=== PATIENT | male | born 1950 | race Two or more races ===

== ENCOUNTER 2018-11-30 09:20 | Emergency (ER) | payer OTHER ==
[~2018-11-30] VITALS: Ht 165.1 cm; Wt 74.8 kg
[2018-11-30] MEDS ORDERED: METOPROLOL ER-1 EACH (09:54)
[2018-11-30] MEDS ORDERED: ATORVASTATIN CA10 MG (09:55)
[2018-11-30] MEDS ORDERED: ASPIR 8181 MG (09:56)
== END 2018-11-30 12:09 | disposition home or self-care (01) ==
LOC: ER 09:20
DX: K40.90 Unilateral inguinal hernia, without obstruction or gangrene, not specified as recurrent (principal); R10.2 Pelvic and perineal pain

== ENCOUNTER 2019-05-21 10:47 | Emergency (ER) | payer OTHER ==
[~2019-05-21] VITALS: Ht 165.1 cm; Wt 74.8 kg
[~2019-05-21 10:47] MED LIST: ASPIR 8181 MG; ATORVASTATIN CA10 MG; METOPROLOL ER-1 EACH
[2019-05-21] MEDS ORDERED: ZESTRIL10 M1 PO (11:31)
[2019-05-21] MEDS ORDERED: FLAGYL500MG PO (23:52)
[2019-05-21] MEDS ORDERED: CIPRO500 MG PO (23:52)
[2019-05-21] MEDS ORDERED: INTESTINEX680 M1 PO (23:52)
== END 2019-05-22 00:07 | disposition home or self-care (01) ==
LOC: ER 10:47
DX: K57.92 Diverticulitis of intestine, part unspecified, without perforation or abscess without bleeding (principal); R10.32 Left lower quadrant pain

== ENCOUNTER 2021-07-27 10:48 | Outpatient (CLI) | payer OTHER ==
[~2021-07-27 10:48] MED LIST changes: +CIPRO500 MG PO; +FLAGYL500MG PO; +INTESTINEX680 M1 PO; +ZESTRIL10 M1 PO
== END 2021-07-27 10:49 | disposition home or self-care (01) ==
LOC: LAB 10:48
PROVIDERS: ATTEND Radiology Diagnostic Radiology
DX: K40.90 Unilateral inguinal hernia, without obstruction or gangrene, not specified as recurrent (principal)